=== PATIENT | female | born 1945 | race Caucasian/White ===

== ENCOUNTER 2019-04-27 12:04 | Emergency (ER) | payer OTHER ==
[~2019-04-27] VITALS: Ht 152.4 cm; Wt 56.7 kg
[2019-04-27 12:40] VITALS: BP 147/98
[2019-04-27] MEDS ORDERED: KETOROLAC TROMETH 30 MG/ML 1ML VIAL IM ONE (14:00)
[2019-04-27] MEDS ORDERED: METHOCARBAMOL 500 MG TAB PO ONE (14:00)
== END 2019-04-27 15:43 | disposition home or self-care (01) ==
LOC: ER 12:06
DX: M54.5 Low back pain (principal); Z90.710 Acquired absence of both cervix and uterus
CPT/HCPCS: 72110; 96372; 99283; J1885